=== PATIENT | male | born 1985 | race Caucasian/White ===

== ENCOUNTER 2025-06-28 09:16 | Emergency (ER) | payer OTHER ==
[~2025-06-28] VITALS: Ht 185.4 cm; Wt 77.1 kg
[2025-06-28 09:57] VITALS: BP 133/75
== END 2025-06-28 11:42 | disposition home or self-care (01) ==
LOC: ER 09:16
DX: L02.214 Cutaneous abscess of groin (principal); Z59.89 Other problems related to housing and economic circumstances
CPT/HCPCS: 10060; 99282-25